=== PATIENT | female | born 1955 | race Two or more races ===

== ENCOUNTER 2025-03-03 15:35 | Emergency (ER) | payer MEDICARE, SELFPAY ==
[2025-03-03 16:39] VITALS: BP 178/107; BP 182/104; PULSE 109; RESP 20; TEMP 37; O2SAT 95
--- NOTE | 2025-03-03 16:48 | EDNOTE_ITS ---
ED General RME/HPI General Chief complaint: General Adult/Misc Complain Stated complaint: FEELS FAINT, BS OUT OF WHACK, POSS EAR INFECTION Time Seen by Provider: 03/03/25 16:38 Arrival date/time: 03/03/25 15:35 CC: Mild progressive worsening of dizziness HPI ongoing for the past 3 days patient denies falls nausea vomiting chest pain shortness of breath difficulty breathing takes no medications has no allergies other than penicillin, has not seen a doctor in a long time, denies any other symptoms. No OTC medicines taken for symptoms. Related Data Previous Rx's ?Medication ?Instructions ?Recorded meclizine 25 mg tablet 25 mg PO BID PRN dizziness # 30 tabs 03/03/25 Allergies Allergy/AdvReac Type Severity Reaction Status Date / Time amoxicillin Allergy Severe VERY ILL Verified 03/03/25 15:40 Penicillins Allergy Severe VERY ILL Verified 03/03/25 15:40 Review of Systems Review of Systems Narrative Review of Systems: GEN: No fever, no chills, no weight loss EYES: No discharge, no visual changes, no pain HEENT: No ear pain, no congestion, no sore throat PULM: No shortness of breath, no cough, no congestion CV: No chest pain, no dyspnea on exertion, no palpitations GI: No nausea, no vomiting, no diarrhea, no pain, no constipation : No frequency, no urgency, no dysuria MUSC/SKEL: No joint pain, no back pain SKIN: No rash PSYCH: No hallucinations, no depression HEME/LYMPH: No easy bleeding or bruising tendencies NEURO: No weakness, no headache, + dizziness Past Medical History Social History SMOKING STATUS: Never smoker ED Exam Narrative Physical exam: [General: In mild discomfort but not in any acute distress Head normocephalic HEENT: Eyes pupils are PERRLA EOMs are intact no nystagmus vertical or horizontal, no entrapment card mouth pink moist membranes uvula midline swallow symmetrical phonation is normal. All other subsystems of HEENT are within acceptable limits Neck is supple nontender no JVD no edema Chest equal chest rise nontender to palpation Respiratory: Clear to auscultation no wheezes crackles or rubs CV: Rate rhythm is regular no murmurs rubs or clicks Abdomen is soft nontender no masses positive bowel sounds all 4 quadrants Back: No CVA tenderness no spinous process tenderness from cervical spine thoracic and lumbar spine Skin: Intact no petechiae rash induration ulceration or crepitus Extremities: Moving all extremity against resistance cap refill less than 2 seconds neurosensory intact Neuro: Awake alert oriented x3 Glascow coma 15 no focal deficits] Course Course Course Narrative: Patient has a complete recovery of all of her dizziness after meclizine was given patient will be diagnosed with vertigo and discharged home. Patient is agreement with this plan. Quality Measures none Orders Category Date Time Status EKG (ED ONLY) *Do not use* NOW Care 03/03/25 16:47 Completed EKG (ED Only) Stat Exams 03/03/25 16:47 Ordered B-Type Natriuretic Peptide Stat Lab 03/03/25 16:55 Completed CBC Stat Lab 03/03/25 16:55 Completed Comprehensive Metabolic Panel Stat Lab 03/03/25 16:55 Completed Drug Screen,Urine Stat Lab 03/03/25 17:09 Completed LDH (Lactate Dehydrogenase) Stat Lab 03/03/25 16:55 Completed Magnesium Stat Lab 03/03/25 16:55 Completed Partial Thromboplastin Time Stat Lab 03/03/25 16:55 Completed Prothrombin Time with INR Stat Lab 03/03/25 16:55 Completed Troponin I Stat Lab 03/03/25 16:55 Completed Urinalysis Stat Lab 03/03/25 17:09 Completed Lisinopril [Prinivil] Med 03/03/25 16:47 Discontinued 10 mg PO X1 ONE Meclizine HCl [Antivert] Med 03/03/25 16:47 Discontinued 25 mg PO X1 ONE Vital Signs Vital signs: Vital Signs Temperature 98.6 F 03/03/25 16:39 Pulse Rate 109 H 03/03/25 16:39 Respiratory Rate 20 03/03/25 16:39 Blood Pressure 178/107 H 03/03/25 16:39 Pulse Oximetry (%) 95 03/03/25 16:39 Oxygen Delivery Method Room Air 03/03/25 16:39 Discharge Plan Plan Patient Disposition: HOME (Self Care) Patient condition on transfer: Stable Prescriptions/Referrals Prescriptions/Med Rec: New meclizine 25 mg tablet 25 mg PO BID PRN (Reason: dizziness) Qty: 30 0RF Referrals: Eddie Keys MD [Physician] - In 1 week No Primary/Family,Physician [Primary Care Provider] - In 1 week Problem List Clinical Impression: Vertigo Patient/Caregiver Discharge Instructions Education Materials: Vertigo Medicine Tx, Vertigo Staying Safe Additional Instructions: Take the medication as prescribed for the next 3 to 4 days stop it and see if the dizziness still remains if so then restart the medications follow-up with your primary care provider if there is worsening symptoms return the emergency room immediately for further evaluation. Print Language: [place] Stand Alone Forms: Emelina Award Info., Patient Portal Info Letter, Work/School Release PA/IRRIGATION EQUIPMENT REMOVER Supervising Physician PA/IRRIGATION EQUIPMENT REMOVER Supervising Physician: Mitchell Suh ENP MDM Patient Acuity High Acuity (complete MDM) Medical Records reviewed [facility] Meds/Rx considered, not ordered None Labs/Rad/Tests considered, not ordered None Chronic Illness/Social Conditions which may negatively complicate care or outcome(s)-explain: None or not applicable Labs Lab(s) Interpretation(s): CBC shows no acute leukocytosis anemia thrombocytopenia INR is within acceptable notes CMP shows no significant electrolyte imbalances other than a glucose of 125. No transaminitis or T. bili elevation Troponin is negative BNP is negative Urine is negative for UTI is leukocyte esterase positive but only 2 WBCs and no bacteria. UDS is negative. Medication Administration(s) Medication Administration History Discontinued Medications Lisinopril (Lisinopril 20 Mg Tablet) 10 mg PO X1 ONE Stop: 03/03/25 16:48 Last Admin: 03/03/25 17:04 Dose: 10 mg Documented By: BEAR Meclizine HCl (Meclizine Hcl 25 Mg Tablet) 25 mg PO X1 ONE Stop: 03/03/25 16:48 Last Admin: 03/03/25 17:06 Dose: 25 mg Documented By: BEAR
[2025-03-03 17:04] VITALS: BP 178/107; PULSE 109
[2025-03-03] MEDS: Lisinopril 20 MG TABLET 10 MG PO (17:04)
[2025-03-03] MEDS: MECLIZINE HCL 25 MG TABLET PO (17:06)
[2025-03-03 17:16] LABS: Basophils % (Auto) 1 % (0-2.5); Eosinophils # (Auto) 0.1 Thou/mm3 (0.0-0.5); Eosinophils % (Auto) 1 % (0-10); Hematocrit 43.3 % (36.0-46.0); Hemoglobin 14.9 g/dL (12.0-16.0); Immature Granulocytes % (Auto) 0 % (0-0); Immature Granulocytes Auto 0.01 Thou/mm3 (0.00-0.00); Lymphocytes # (Auto) 1.9 Thou/mm3 (1.0-4.8); Lymphocytes % (Auto) 31 % (10-50); Mean Corpuscular HGB Conc 34.4 g/dl (31.0-37.0); Mean Corpuscular Hemoglobin 30.7 pg (25.0-35.0); Mean Corpuscular Volume 89 fL (80-100); Monocytes # (Auto) 0.5 Thou/mm3 (0.0-0.8); Monocytes % (Auto) 9 % (0-12); Neutrophils # (Auto) 3.5 Thou/mm3 (1.8-7.7); Neutrophils % (Auto) 59 % (37-80); Nucleated Red Blood Cell % 0 /100 WBC (0); Platelet Count 215 Thou/mm3 (140-440); RDW Standard Deviation 40.8 fL (36.4-46.3); Red Blood Count 4.85 Miln/mm3 (4.00-5.20)
[2025-03-03 17:33] LABS: B-Type Natriuretic Peptide 26 pg/mL (0-100)
[2025-03-03 17:37] LABS: Partial Thromboplastin Time 28.5 Seconds (22.0-36.0); Prothrombin Time 10.8 Seconds (9.0-12.2)
[2025-03-03 17:38] LABS: Alanine Aminotransferase 37 U/L (10-49); Albumin, Serum 4.7 gm/dL (3.4-4.8); Albumin/Globulin Ratio 1.9 (1.2-2.2); Alkaline Phosphatase 93 U/L (46-116); Anion Gap 8 (7-16); Aspartate Amino Transferase 32 U/L (0-34); BUN/Creatinine Ratio 17 Ratio (12-20); Bilirubin,Total 0.6 mg/dL (0.3-1.2); Blood Urea Nitrogen 12 mg/dL (9-23); Calcium 9.7 mg/dL (8.3-10.6); Calcium (Corrected) 9.7 mg/dL (8.5-10.1); Carbon Dioxide 24.8 mMol/L (20.0-31.0); Chloride 109 mMol/L (98-107); Creatinine (Component) 0.7 mg/dL (0.6-1.3); Estimated Creatinine Clearance 71.2 mL/min (>60); Globulin 2.5 gm/dL (2.3-3.5); Glucose 125 mg/dL (74-106); LDH (Lactate Dehydrogenase) 203 U/L (120-246); Osmolality,Calculated 283 (275-295); Potassium 3.8 mMol/L (3.4-5.1); Sodium 142 mMol/L (136-145); Total Protein 7.2 gm/dL (5.7-8.2); Troponin I < 0.002 ng/mL (0.0-0.045); eGFR > 60 See Note
[2025-03-03 18:07] LABS: Collection Type, Urine Clean Catch
[2025-03-03 18:29] LABS: Bilirubin,Urine Negative (Negative); Blood,Urine Negative (Negative); Clarity,Urine Clear (Clear/Hazy); Color,Urine Lt-Yellow (Lt Yel-Yel); Glucose, Urine Negative (Negative); Ketones,Urine Negative (Negative); Leukocyte Esterase,Urine Positive (Negative); Nitrite,Urine Negative (Negative); Protein,Urine Negative (Neg - Trace); RBC,Urine 2 /hpf (0-3); Specific Gravity,Urine 1.019 (1.001-1.035); Squamous Epithelial Cell,Urine 1 /hpf (0-5); Urobilinogen,Urine Negative mg/dL (0.0-1.0); WBC,Urine 2 /hpf (0-5)
[2025-03-03 18:45] LABS: Amphetamine/Methamp Scrn,U Negative (Negative); Barbiturate Screen,Urine Negative (Negative); Benzodiazepines Screen,Urine Negative (Negative); Benzoylecgonine Screen, Ur Negative (Negative); Fentanyl Screen,Urine Negative (Negative); Opiate Screen,Urine Negative (Negative); THC Screen,Urine Negative (Negative)
[2025-03-03 20:16] VITALS: BP 182/96; PULSE 86; RESP 18; O2SAT 96
== END 2025-03-03 20:24 | disposition home or self-care (01) ==
PROVIDERS: Registered Nurse General Practice; Emergency Provider Family Medicine
DX: R42 Dizziness and giddiness (principal)
CPT/HCPCS: 36415; 80053; 80307; 81001; 83615; 83735; 83880; 84484; 85025; 85610; 85730; 93005; 99283; A9270